=== PATIENT | male | born 1925 | race Caucasian/White ===

== ENCOUNTER 2016-11-29 14:06 | Emergency (ER) | payer MEDICARE ==
[2016-11-29 14:34] VITALS: BP 160/69; PULSE 71; RESP 20; TEMP 98.5; O2SAT 99
--- NOTE | 2016-11-29 15:49 | PD ---
HPI Chief Complaint: Musculoskeletal Complaint Time Seen by Provider: 15:42 Travel History International Travel<30 days: No Contact w/Intl Traveler<30days: No Traveled to known affect area: No History of Present Illness HPI 89-year-old male who recently moved to deliver with his son from [facility]. Patient comes in with erythema and tenderness to the anterior left knee. He states he was "poked with a needle" but his son is unsure how that can happen. The patient does suffer from dementia. There is also a question of possible urinary tract infection with couple episodes of incontinence and urinary frequency. The patient himself denies urinary symptoms or fever or chills. He has no abdominal pain. He does have a history of gout but the pain is anterior to the patella. He noticed increased erythema and warmth this morning. Patient is allergic to penicillin. PFSH Social History Alcohol Use: No Tobacco Use: No Substance Use: No Allergies-Medications (Allergen,Severity, Reaction): Coded Allergies: Penicillins (Verified Allergy, Unknown, 11/29/16) Reported Meds & Prescriptions Reported Meds & Active Scripts Active Reported Donepezil 5 Mg Tab 5 Mg PO HS Simvastatin 40 Mg Tab 40 Mg PO HS Metoprolol Tartrate 50 Mg Tab 50 Mg PO DAILY Aspirin 81 Mg Chew 81 Mg CHEW DAILY Review of Systems Except as stated in HPI: all other systems reviewed are Neg General / Constitutional: No: Fever, Chills Eyes: No: Visual changes HENT: No: Headaches Cardiovascular: No: Chest Pain or Discomfort Respiratory: No: Shortness of Breath Gastrointestinal: No: Nausea, Abdominal Pain Genitourinary: Positive: Frequency, Incontinence, No: Urgency, Dysuria Musculoskeletal: No: Myalgias, Arthralgias, Limited ROM, Pain Skin: Positive Lesions (see history present illness), No Rash Neurologic: No: Weakness Psychiatric: No: Depression Endocrine: No: Polydipsia Hematologic/Lymphatic: No: Easy Bruising Physical Exam Narrative GENERAL: Patient appears in no acute distress. SKIN: Warm and dry. Normal color. Normal turgor. Patient has a small 2-3 mm round scab to the anterior left patella with increased erythema and warmth extending approximately 2 cm out circumferentially. There is no palpable abscess or drainable area. The joint itself appears unaffected. HEAD: Atraumatic. Normocephalic. EYES: Pupils equal and round. No scleral icterus. No injection or drainage. ENT: No nasal bleeding or discharge. Mucous membranes pink and moist. Pharynx is clear. Airway is patent. NECK: Trachea midline. Supple and nontender. CARDIOVASCULAR: Regular rate and rhythm. No murmurs gallops or rubs. RESPIRATORY: No accessory muscle use. Clear to auscultation. Breath sounds equal bilaterally. GASTROINTESTINAL: Abdomen soft, non-tender, nondistended. Hepatic and splenic margins not palpable. No CVA tenderness. MUSCULOSKELETAL: Extremities without clubbing, cyanosis, or edema. No obvious deformities. NEUROLOGICAL: Awake and alert. No obvious cranial nerve deficits. Motor grossly within normal limits. Five out of 5 muscle strength in the arms and legs. Normal speech. PSYCHIATRIC: Appropriate mood and affect; insight and judgment normal. Data Data Last Documented VS Vital Signs Date Time Temp Pulse Resp B/P (MAP) Pulse Ox O2 Delivery O2 Flow Rate FiO2 11/29/16 14:34 98.5 71 20 160/69 (99) 99 Orders Orders Complete Blood Count With Diff (11/29/16 15:42) Comprehensive Metabolic Panel (11/29/16 15:42) Urinalysis - C+S If Indicated (11/29/16 15:42) Sulfamet-Trimeth Ds 800-160 Mg (Bactrim (11/29/16 16:00) Labs Laboratory Tests Test 11/29/16 15:30 11/29/16 16:10 Urine Collection Type CLEAN CATCH Urine Color YELLOW Urine Turbidity CLEAR Urine pH 6.[address] 1.018 Urine Protein TRACE mg/dL Urine Glucose (UA) NEG mg/dL Urine Ketones NEG mg/dL Urine Occult Blood MOD Urine Nitrite NEG Urine Bilirubin NEG Urine Leukocyte Esterase NEG Urine RBC 20-24 /hpf Urine WBC 0-2 /hpf Urine Squamous Epithelial Cells 0-5 /hpf Microscopic Urinalysis Comment CULT NOT INDICATED Urine Collection Time 15:30 White Blood Count 11.5 TH/MM3 Red Blood Count 3.94 MIL/MM3 Hemoglobin 11.4 GM/DL Hematocrit 34.5 % Mean Corpuscular Volume 87.4 FL Mean Corpuscular Hemoglobin 29.0 PG Mean Corpuscular Hemoglobin Concent 33.1 % Red Cell Distribution Width 13.9 % Platelet Count 249 TH/MM3 Mean Platelet Volume 7.4 FL Neutrophils (%) (Auto) 52.7 % Lymphocytes (%) (Auto) 36.5 % Monocytes (%) (Auto) 6.0 % Eosinophils (%) (Auto) 2.9 % Basophils (%) (Auto) 1.9 % Neutrophils # (Auto) 6.1 TH/MM3 Lymphocytes # (Auto) 4.2 TH/MM3 Monocytes # (Auto) 0.7 TH/MM3 Eosinophils # (Auto) 0.3 TH/MM3 Basophils # (Auto) 0.2 TH/MM3 CBC Comment AUTO DIFF Blood Urea Nitrogen 32 MG/DL Creatinine 1.60 MG/DL Random Glucose 118 MG/DL Total Protein 6.8 GM/DL Albumin 3.5 GM/DL Calcium Level 8.6 MG/DL Alkaline Phosphatase 65 U/L Aspartate Amino Transf (AST/SGOT) 17 U/L Alanine Aminotransferase (ALT/SGPT) 17 U/L Total Bilirubin 0.5 MG/DL Sodium Level 139 MEQ/L Potassium Level 4.1 MEQ/L Chloride Level 104 MEQ/L Carbon Dioxide Level 27.7 MEQ/L Anion Gap 7 MEQ/L Estimat Glomerular Filtration Rate 41 ML/MIN [facility] Medical Decision Making Medical Screen Exam Complete: Yes Emergency Medical Condition: Yes Differential Diagnosis Cellulitis. Urinary tract infection. Urinary frequency. Possible gout. Narrative Course Patient is medically stable at time of exam. Labs ordered including CBC, CMP, and urinalysis. Patient is given his first dose of Bactrim DS by mouth 1. Labs show leukocytosis of 11.5, without significant shift. CMP is unremarkable except for BUN of 32, creatinine 1.60, GFR is 41. Random glucose of 118. I have no previous chemistry to compare to. Urinalysis shows no significant findings other than 20 a 24 RBCs per high-power field. No sign of infection is noted Patient will be treated for cellulitis of the left anterior knee with Bactrim DS 7 days. Patient take Tylenol as well as needed. Recommend patient follow-up with the primary care physician in the next week to ensure improvement in follow-up on the microscopic hematuria. Patient can return to emergency department if symptoms worsen or do not improve. Diagnosis Primary Impression: Cellulitis Qualified Codes: L03.116 - Cellulitis of left lower limb Referrals: Primary Care Physician 1 week Patient Instructions: General Instructions Additional Instructions: Labs show leukocytosis of 11.5, without significant shift. CMP is unremarkable except for BUN of 32, creatinine 1.60, GFR is 41. Random glucose of 118. I have no previous chemistry to compare to. Urinalysis shows no significant findings other than 20 a 24 RBCs per high-power field. No sign of infection is noted Patient will be treated for cellulitis of the left anterior knee with Bactrim DS 7 days. Patient take Tylenol as well as needed. Recommend patient follow-up with the primary care physician in the next week to ensure improvement in follow-up on the microscopic hematuria. Patient can return to emergency department if symptoms worsen or do not improve. Med/Other Pt SpecificInfo: Prescription(s) given Disposition: 01 DISCHARGE HOME Condition: Stable Colby Aaron Nov 29, 2016 15:49
[2016-11-29] MEDS ORDERED: DONE5TAB7 PO (15:50)
[2016-11-29] MEDS ORDERED: SIMV40TA PO (15:50)
[2016-11-29] MEDS ORDERED: ASPI81CH CHEW (15:50)
[2016-11-29] MEDS ORDERED: METO50TA PO (15:50)
[2016-11-29] MEDS ORDERED: SULFAMETHOXAZOLE-TRIMETHOPRIM DS 800-160 MG TAB PO ONE (16:00)
[2016-11-29 16:16] LABS: AUTOMATED NEUTROPHIL # 6.1 TH/MM3 (1.8-7.7); BASOPHIL # 0.2 TH/MM3 (0-0.2); BASOPHIL % 1.9 % (0.0-2.0); EOSINOPHIL # 0.3 TH/MM3 (0-0.4); EOSINOPHIL % 2.9 % (0.0-4.0); HEMATOCRIT 34.5 % (39.0-51.0); LYMPH % 36.5 % (9.0-44.0); LYMPHOCYTE # 4.2 TH/MM3 (1.0-4.8); MEAN CELL VOLUME 87.4 FL (80.0-100.0); MEAN CORPUSCULAR HGB CONC 33.1 % (32.0-36.0); NEUT % 52.7 % (16.0-70.0); PLATELET COUNT 249 TH/MM3 (150-450); RED BLOOD COUNT 3.94 MIL/MM3 (4.50-5.90); RED CELL DISTRIBUTION WIDTH 13.9 % (11.6-17.2); WHITE BLOOD COUNT 11.5 TH/MM3 (4.0-11.0)
[2016-11-29 16:17] LABS: BLOOD, URINE MOD (NEG); GLUCOSE,URINE NEG (NEG); KETONE, URINE NEG (NEG); NITRITE,URINE NEG (NEG)
[2016-11-29 16:21] LABS: HEMO FLAGS AUTO DIFF
[2016-11-29 16:24] LABS: METHOD OF COLLECTION CLEAN CATCH; URINE COLOR YELLOW (YELLW/STRAW)
[2016-11-29 16:26] LABS: COMMENT (UR) CULT NOT INDICATED; CULTURE IF INDICATED CULT NOT INDICATED; SQUAMOUS EPITHELIAL CELL URINE 0-5 /hpf (0-5); WBC, URINE 0-2 /hpf (0-5)
[2016-11-29 16:29] LABS: CHLORIDE 104 MEQ/L (98-107); POTASSIUM 4.1 MEQ/L (3.5-5.1); SODIUM (NA) 139 MEQ/L (136-145)
[2016-11-29 16:34] LABS: ANION GAP 7 MEQ/L (5-15); BICARBONATE 27.7 MEQ/L (21.0-32.0); BLOOD UREA NITROGEN 32 MG/DL (7-18)
[2016-11-29 16:37] LABS: ALT (GPT) 17 U/L (12-78); AST (GOT) 17 U/L (15-37); GLOMERULAR FILTRATION RATE 41 ML/MIN (>89)
[2016-11-29 16:39] LABS: TOTAL BILIRUBIN ADULT 0.5 MG/DL (0.2-1.0)
[2016-11-29 16:40] LABS: ALKALINE PHOSPHATASE 65 U/L (45-117)
[2016-11-29] MEDS ORDERED: BACT800T5 PO (16:52)
[2016-11-29 17:37] LABS: SCAN/DIFF AUTO DIFF CONFIRMED
== END 2016-11-29 17:22 | disposition home or self-care (01) ==
LOC: PHEFT 14:06
DX: M10.9 Gout, unspecified (principal); F03.90 Unspecified dementia, unspecified severity, without behavioral disturbance, psychotic disturbance, mood disturbance, and anxiety; Z88.0 Allergy status to penicillin
CPT/HCPCS: 80053; 81001; 85025; 99283